=== PATIENT | female | born 1975 | race African-American/Black ===

== ENCOUNTER 2021-08-03 13:32 | Emergency (ER) | payer BC ==
--- OUTSIDE RECORDS SUMMARY | 2021-08-03 13:38 | XMS REPORT | Encounter Summary ---
Author Author [facility] Organization [facility] Address Unknown Phone Unavailable Care Team Providers Care Director Of National Sales Name Role Phone PCP Unavailable Reason for Visit * Reason Comments Poc Onsite Covid19 Testing Encounter Details Care Team Description Date Type Department Dorothea Damon, SHELIA [address] [place] [address] Contact with and (suspected) exposure to covid-19 (Primary Dx); Encounter for observation for suspected exposure to other biological agents ruled out 07/10/2021 Office Visit [place] - [address] Covid - 19 Testing Site [facility] [address] [place] [address] Social History Date Tobacco Use Types Packs/Day Years Used Never Assessed Sex Assigned at Date Recorded Not on file documented as of this encounter Last Filed Vital Signs Not on filedocumented in this encounter Functional Status Date of Assessment Functional Status Response Is the person deaf or does he/she have serious difficulty hearing? Is this person blind or does he/she hav e serious difficulty seeing even when wearing gla sses? Does this person have serious difficult y walking or climbing stairs? Does this person have difficulty dressi ng or bathing? Because of a physical, mental, or emoti onal condition, does this person have diffic ulty doing errands alone such as visiting a doctor 's office or shopping? Date of Assessment Cognitive Status Response Because of a physical, mental, or emoti onal condition, does this person have seriou s difficulty concentrating, remembering, or making decisions? documented as of this encounter Patient Instructions * Patient Instructions* Tala Bailey RN - 07/10/2021 2:40 PM CDT Patient was reached and results were delivered. Negative Test results You were seen for COVID-19 Testing and have tested negat yary. If you test negative for COVID-19, you probably were not infected at the ti me your specimen was collected. However, that does not mean you will not get sic k. It is possible that you were very early in your infection at the time of your specimen collection and that you could test positive later, or you could be exp osed later and then develop illness. Even with a negative test, it is important to stay home if sick and follow Department of Health recommendations. Managing your symptoms During this viral illness, rest and hydration are impor tant in your recovery. You can take anti-fever medication as directed per your [facility] provider and package instructions. Prevent the spread of illness Separate yourself from other people in your home As much as possible, you shoul d stay in a specific room and away from other people in your home. Also, you khanh uld use a separate bathroom, if available. Call ahead before visiting your doctor If you have a medical appointment, call t he healthcare provider and tell them that you have or may have COVID-19. This wi ll help the healthcare providers office take steps to keep other people from getting infected or exposed. Wear a facemask You should wear a facemask, if possible, when you are around ot er people (e.g., sharing a room or vehicle) and before you enter a healthcare pr oviders office. If you are not able to wear a facemask (for example, because it causes trouble breathing), then people who live with you should not be in the same room with you, or they should wear a facemask if they enter your room. Cover your coughs and sneezes Cover your mouth and nose with a tissue when you c ough or sneeze. Throw used tissues in a lined trash can; immediately clean your hands as described below. Clean your hands often Wash your hands often with soap and water for at least 20 seconds. If soap and water are not available, clean your hands with an alcohol- based hand expert medical writer that contains at least 60% alcohol, covering all surfaces o f your hands and rubbing them together until they feel dry. Soap and water is pr eferred if hands are visibly dirty. Avoid touching your eyes, nose, and mouth wi th unwashed hands. Avoid sharing personal household items You should not share dishes, drinking gla sses, cups, eating utensils, towels, or bedding with other people or pets in you r home. After using these items, they should be washed thoroughly with soap and water and dried before use by others. Clean all high-touch surfaces every day High touch surfaces include counte rs, tabletops, doorknobs, bathroom fixtures, toilets, phones, keyboards, tablets , and bedside tables. Also, clean any surfaces that may have blood, stool, or roma dy fluids on them. Use a household cleaning spray or wipe, according to the labe l instructions. Labels contain instructions for safe and effective use of the cl eaning product including precautions you should take when applying the product, such as wearing gloves and making sure you have good ventilation during use of t he product. [facility] COVID19 Fact Sheet You are being given this Fact Sheet because your sample(s) are being tested for the virus that causes Coronavirus Disease 2019 (COVID-19). This Fact Sheet contains information to help you understand the risks and benefi ts of using this test for the diagnosis of COVID-19. If you have questions or wo uld like to discuss the information provided after you read this Fact Sheet, ple ase talk to your healthcare provider. For the most up to date information on COVID-19 please visit the CDC Coronavirus Disease 2019 (COVID-19) webpage: https://www.cdc.gov/coronavirus/2019-ncov/index.html IMPORTANT INFORMATION REGARDING COVID19 TEST RESULTS: Please wait for next steps in the parking lot or designated wait area after you submitted your sample Ensure your phone is on as the provider will be calling you with next steps as you wait in the designated wait area. The [facility] provider will be able to perform other diagnostic tests (e. g., rapid flu or rapid strep) at the on-site [facility] for a symptomatic itz ent with a negative COVID-19 test result and can help answer questions about how to best manage symptoms and quarantine for a patient with a positive COVID-19 r esult. Know about COVID-19 COVID-19 is caused by the SARS-CoV-2 virus. COVID- 19 can cause mild to severe r espiratory illness, was first identified in [facility], and has now spread sade bally, including in the [place]. There is limited information available ab out the spectrum of illness associated with COVID-19 but it likely spreads to ot hers when a person shows signs or symptoms of being sick (e.g., cough, shortness of breath or difficult breathing, fever, chills, repeated shaking with chills, muscle pain, headache, sore throat, new loss of taste or smell, other less commo n symptoms have been reported, including gastrointestinal symptoms like nausea, vomiting, or diarrhea.) What are the known and potential risks and benefits of the test? Potential risks include: Possible discomfort or other complications that can happen during sample col lection. (I.e. bloody nose during specimen collection) It is possible that this test can give a positive result that is wrong (a fa lse positive result). It is possible for this test to give a negative result that is incorrect (fa lse negative). Potential benefits include: The results, along with other information, can help your healthcare provider make informed recommendations about your care. The results of this test may help limit the spread of COVID-19 to your famil y and others in your community. The results of this test may help limit the spread of COVID-19 to your famil y and others in your community. Potential benefits include: The results, along with other information, can help your healthcare provider make informed recommendations about your care. The results of this test may help limit the spread of COVID-19 to your famil y and others in your community. What does it mean if I have a positive test result? If you have a positive test result, it is very likely that you have COVID-19. Th erefore, it is also likely that you may be placed in isolation to avoid spreadin g the virus to others. There is a very small chance that this test can give a po sitive result that is wrong (a false positive result). Most cases can be cared for at home. Stay home and limit contact with others unt il: You have been fever-free for at least 24 hours without using medicine that reduc es fever AND your symptoms have improved AND at least 10 days have passed since your symptoms first appeared. Do not go to the hospital to seek care unless you have a medical emergency Do not go to work. Notify your employer of your positive test result Contact your primary care provider and inform them of your positive COVID19 testing result Continue to monitor your symptoms at home and seek medical attention if symp toms worsen as described on the opposite side of this document. If you test positive for COVID-19 but never had and never develop symptoms, you may discontinue isolation and other precautions 10 days after the date of your f irst positive test for COVID-19. What does it mean if I have a negative test result? A negative test result does not completely rule out being infected with COVID-19 . There is a chance that this test can give a false result that is wrong (a fals e negative result). If you test negative for COVID-19, this means the virus was not detected at the time your specimen was collected. It is still possible that you were very early in your infection at the time of your specimen collection and that you could thiago t positive later. Also, you could be exposed later and still develop the illness. For all these re asons, it is important to follow CDC guidance at (https://www.cdc.gov/coronaviru s/2019-ncov/etbnjzk-yocciyp-bzhz/prevention.html), including but not limited to frequent hand washing, social distancing, wearing a face covering, covering coug hs and sneezes, monitoring symptoms, and cleaning and disinfectant of frequently touched surfaces -- even after a negative test result. Is there a possibility that the test results could be invalid? In the instance that your specimen is invalid, you may have to submit a second s pecimen. If that also is an invalid result, you will likely need send-out lab te sting. Testing invalid today does not mean you do have COVID-19 or dont have COVID-19. There are some reasons as to why you may have tested invalid. For exam ple, a recent bloody nose, testing device errors, or not enough of a specimen sa mple could give an invalid result. How should I monitor my symptoms? Note the day any new symptoms begin Check your own temperature two times a day Keep a daily record of fever, cough and additional respiratory symptoms Seek further evaluation from a healthcare provider via telemedicine, or thru a scheduled in person visit if applicable and your symptoms get worse. Call ahead before visiting your healthcare provider and tell them you have b een tested for COVID-19. Even if you dont experience symptoms you might make others sick What should I do if symptoms get worse? Wash your hands often with soap and water for at least 20 seconds. Clean you r hands with an alcohol-based hand expert medical writer that contains at least 60% alcohol if soap and water are not available. Avoid close contact with people who are sick Avoid touching your eyes, nose and mouth with unwashed hands. Clean all high-touch surfaces every day. High touch surfaces include c ounters, tabletops, doorknobs, bathroom fixtures, toilets, phones, keyboards, ta blets, and beside tables. Cover coughs and sneezes If available, wear a face covering What should I do if symptoms get worse? Seek medical attention immediately if you develop any of the following [facility] warning signs for COVID-19 or other medical emergencies: Difficulty breathing Bluish lips or face Constant pain or pressure in your chest Constant dizziness or lightheadedness Acting confused Difficulty waking up Slurred speech (new or worsening) New seizure or seizures that wont stop This list is not all-inclusive. Please consult a healthcare provider for any oth er symptoms that are severe or concerning. What should I do to protect myself? Wash your hands often with soap and water for at least 20 seconds. Clean you r hands with an alcohol-based hand expert medical writer that contains at least 60% alcohol if soap and water are not available. Avoid close contact with people who are sick Avoid touching your eyes, nose and mouth with unwashed hands. Clean all high-touch surfaces every day. High touch surfaces include c ounters, tabletops, doorknobs, bathroom fixtures, toilets, phones, keyboards, ta blets, and beside tables. Cover coughs and sneezes If available, wear a face covering When will I receive my test results? [employer] allows you to view your test results, your medical records and more. You will receive a [employer]Flow activation email at the conclusion of your COVID19 visit. Upon receipt, you will need to create a user name and password by inputting [facility] patient demographics including date of and a response to a security qu estion. If you have any questions and/or concerns regarding the [employer] process, you may email [email or web address] Our Notice of Privacy Practices can be found here: [email or web address] If you have any questions, pl ease contact us at . Where can I go for updates and more information? The most up-to-date information on is available at the [facility] General webpage: https://www.cdc.gov/COVI D19 In addition, please also contact your healthcare provider with any questions/con cerns. [facility] Information Updated: February 22, 2020 documented in this encounter Progress Notes * Tala Bailey RN - 07/10/2021 2:40 PM CDT [facility] Department of Health notified of results per regulations documented in this encounter Plan of Treatment Not on filedocumented as of this encounter Goals Not on filedocumented as of this encounter Procedures Comments Procedure Name Priority Date/Time Associated Diag nosis LUMIRADX SARS-COV-2 RAPID Routine 07/10/2021 Cont act with and RESULT ANTIGEN TEST 2:41 PM CDT (suspected) expos ure to covid-19 documented in this encounter Results * LumiraDX SARS-COV-2 Rapid Result Antigen Test (07/10/2021 2:41 PM CDT) LumiraDX Negative Negative, Invalid POCT 585 SARS-COV-2 Rapid Result Antigen Test INTERNAL Yes--Test working [address]CT [address] CONTROLS VALID appropriately Expiration Date 112,521 [address] Lot Number [id number] POCT [address] Test Brand Lumiradx Sars-Cov-2 AG Test POCT 5 85 Name_Covid-19 Specimen Other Performing Organization Address City/State/ZIP Code P willian Number [id number] [place], [place] [address] documented in this encounter Visit Diagnoses Diagnosis Contact with and (suspected) exposure t o covid-19 - Primary Encounter for observation for suspected exposure to other biological agents ruled out documented in this encounter Administered Medications Not on filedocumented in this encounter Additional Health Concerns Not on filedocumented as of this encounter
--- OUTSIDE RECORDS SUMMARY | 2021-08-03 13:38 | XMS REPORT | Clinical Summary ---
Author Author [facility] Organization [facility] Address Unknown Phone Unavailable Care Team Providers Care Bulk Pallet Builder Name Role Phone PP Unavailable Allergies Not on File Medications Not on file Active Problems Not on file Encounters Care Team Description Date Type Specialty Dorothea Damon NP Contact with and (suspected) exposure to covid-19 (Primary Dx); Encounter for observation for suspected exposure to other biological agents ruled out 07/10/2021 Office Visit Progress Notes - Tala Bailey RN - 07/10/2021 2:40 PM CDT [facility] Department of Health notified of results per regulations from Last 3 Months Social History Date Tobacco Use Types Packs/Day Years Used Never Assessed Sex Assigned at Date Recorded Not on file Plan of Treatment Health Maintenance Due Date Last Done Comments MAMMOGRAM 1974 Cervical Cancer: 1995 Screening Colonoscopy 2014 Procedures Comments Procedure Name Priority Date/Time Associated Diag nosis LUMIRADX SARS-COV-2 RAPID Routine 07/10/2021 Cont act with and RESULT ANTIGEN TEST 2:41 PM CDT (suspected) expos ure to covid-19 from Last 3 Months Results * LumiraDX SARS-COV-2 Rapid Result Antigen Test (07/10/2021 2:41 PM CDT) LumiraDX Negative Negative, Invalid POCT [address] SARS-COV-2 Rapid Result Antigen Test INTERNAL Yes--Test working POCT [address] CONTROLS VALID appropriately Expiration Date 112,521 [address] Lot Number [id number] POCT [address] Test Brand Lumiradx Sars-Cov-2 AG Test MC POCT 5 85 Name_Covid-19 Specimen Other Performing Organization Address City/State/ZIP Code P willian Number POCT [phone] [place], [place] [address] from Last 3 Months
--- NOTE | 2021-08-03 13:50 | ED General ---
General Stated Complaint: NAUSEA/DIZZINESS/ANXIOUS Source of Information: Patient Exam Limitations: No Limitations History of Present Illness Date Seen by Provider: Aug 03, 2021 Time Seen by Provider: 13:49 Initial Comments To ER with nausea dizziness and anxiety since Thursday of this week. No fever no cough no shortness of breath no chills. She has not fully vaccinated. She just arrived here from [place] to move her daughter home. Her daughter lives here in [place]. She takes no medications. She did just finished her menstrual cycle. Timing/Duration: 3-4 Days Severity: Moderate Associated Systoms: Nausea/Vomiting Allergies and Home Medications Allergies Coded Allergies: No Known Drug Allergies (Unverified , 08/03/21) Patient Home Medication List Home Medication List Reviewed: Yes Alprazolam (Xanax) 0.5 Mg Tablet, 0.5 MG PO BID PRN for ANXIETY Prescribed by: SIMONA ARCOS on 08/03/21 1500 Ondansetron (Ondansetron Odt) 8 Mg Tab.rapdis, 8 MG PO Q6H PRN for NAUSEA/VOMITING Prescribed by: SIMONA ARCOS on 08/03/21 1500 Review of Systems Review of Systems Constitutional: see HPI; No chills, No fever EENTM: see HPI Respiratory: no symptoms reported Cardiovascular: no symptoms reported Genitourinary: no symptoms reported Musculoskeletal: no symptoms reported Skin: no symptoms reported Psychiatric/Neurological: No Symptoms Reported Hematologic/Lymphatic: No Symptoms Reported Immunological/Allergic: no symptoms reported Physical Exam Vital Signs Vital Signs - First Documented 08/03/21 13:38 Temp 36.2 Pulse 80 Resp 16 B/P (MAP) 145/117 (126) Pulse Ox 98 O2 Delivery Room Air Capillary Refill : Height, Weight, BMI Height: '" Weight: lbs. oz. kg; BMI Method: General Appearance: No Apparent Distress, WD/WN Eyes: Bilateral Eye Normal Inspection, Bilateral Eye PERRL, Bilateral Eye EOMI Neck: Full Range of Motion, Normal Inspection Respiratory: No Accessory Muscle Use, No Respiratory Distress Cardiovascular: Regular Rate, Rhythm, Normal Peripheral Pulses Gastrointestinal: Normal Bowel Sounds, Non Tender, Soft Extremity: Normal Capillary Refill, Normal Inspection Neurologic/Psychiatric: Alert, Oriented x3 Skin: Normal Color, Warm/Dry Progress/Results/Core Measures Suspected Sepsis SIRS Temperature: Pulse: Respiratory Rate: Laboratory Tests 08/03/21 13:47: White Blood Count 10.1 Blood Pressure / Mean: Laboratory Tests 08/03/21 13:47: Creatinine 0.94, Platelet Count 385, Total Bilirubin 0.3 Results/Orders Lab Results Laboratory Tests Test 08/03/21 13:47 08/03/21 14:06 Range/Units White Blood Count 10.1 4.3-11.0 10^3/uL Red Blood Count 4.70 3.80-5.11 10^6/uL Hemoglobin 11.6 11.5-16.0 g/dL Hematocrit 37 35-52 % Mean Corpuscular Volume 79 L 80-99 fL Mean Corpuscular Hemoglobin 25 25-34 pg Mean Corpuscular Hemoglobin Concent 31 L 32-36 g/dL Red Cell Distribution Width 16.3 H 10.0-14.5 % Platelet Count 385 130-400 10^3/uL Mean Platelet Volume 10.8 9.0-12.2 fL Immature Granulocyte % (Auto) 0 % Neutrophils (%) (Auto) 64 42-75 % Lymphocytes (%) (Auto) 26 12-44 % Monocytes (%) (Auto) 5 0-12 % Eosinophils (%) (Auto) 4 0-10 % Basophils (%) (Auto) 1 0-10 % Neutrophils # (Auto) 6.5 1.8-7.8 10^3/uL Lymphocytes # (Auto) 2.6 1.0-4.0 10^3/uL Monocytes # (Auto) 0.5 0.0-1.0 10^3/uL Eosinophils # (Auto) 0.4 H 0.0-0.3 10^3/uL Basophils # (Auto) 0.1 0.0-0.1 10^3/uL Immature Granulocyte # (Auto) 0.0 0.0-0.1 10^3/uL Sodium Level 137 135-145 MMOL/L Potassium Level 3.6 3.6-5.0 MMOL/L Chloride Level 105 98-107 MMOL/L Carbon Dioxide Level 20 L 21-32 MMOL/L Anion Gap 12 5-14 MMOL/L Blood Urea Nitrogen 9 7-18 MG/DL Creatinine 0.94 0.60-1.30 MG/DL Estimat Glomerular Filtration Rate 77 BUN/Creatinine Ratio 10 Glucose Level 154 H 70-105 MG/DL Calcium Level 9.3 8.5-10.1 MG/DL Corrected Calcium 9.5 8.5-10.1 MG/DL Total Bilirubin 0.3 0.1-1.0 MG/DL Aspartate Amino Transf (AST/SGOT) 26 5-34 U/L Alanine Aminotransferase (ALT/SGPT) 26 0-55 U/L Alkaline Phosphatase 78 40-136 U/L Total Protein 7.5 6.4-8.2 GM/DL Albumin 3.8 3.2-4.5 GM/DL Thyroid Stimulating Hormone (TSH) 1.07 0.35-4.94 UIU/ML Free Thyroxine 1.06 0.70-1.48 NG/DL Urine Color YELLOW Urine Clarity CLEAR Urine pH 5.5 5-9 Urine Specific [place] >=1.030 1.016-1.022 Urine Protein NEGATIVE NEGATIVE Urine Glucose (UA) NEGATIVE NEGATIVE Urine Ketones NEGATIVE NEGATIVE Urine Nitrite NEGATIVE NEGATIVE Urine Bilirubin 1+ H NEGATIVE Urine Urobilinogen 0.2 < = 1.0 MG/DL Urine Leukocyte Esterase NEGATIVE NEGATIVE Urine RBC (Auto) 2+ H NEGATIVE Urine RBC 0-2 /HPF Urine WBC RARE /HPF Urine Squamous Epithelial Cells 2-5 /HPF Urine Crystals PRESENT H /LPF Urine Amorphous Sediment FEW CORY URATES H /LPF Urine Bacteria FEW H /HPF Urine Casts NONE /LPF Urine Mucus NEGATIVE /LPF Urine Culture Indicated YES Micro Results Microbiology 08/03/21 Urine Culture - Final, Complete Growth Consistent My Orders Orders - SIMONA ARCOS APRN Lorazepam Injection (Ativan Injection) (08/03/21 14:00) Ondansetron Injection (Zofran Injectio (08/03/21 14:00) Lactated Ringers (Lr 1000 Ml Iv Solution (08/03/21 14:00) Cbc With Automated Diff (08/03/21 13:46) Comprehensive Metabolic Panel (08/03/21 13:46) Ua Culture If Indicated (08/03/21 13:46) Thyroid Stimulating Hormone (08/03/21 13:46) Free T4 (Free Thyroxine) (08/03/21 13:46) Ed Iv/Invasive Line Start (08/03/21 13:46) Ekg Tracing (08/03/21 13:46) Urine Culture (08/03/21 14:06) Promethazine Injection (Phenergan Injec (08/03/21 15:15) Medications Given in ED Vital Signs/I&O 08/03/21 08/03/21 13:38 15:44 Temp 36.2 36.2 Pulse 80 82 Resp 16 16 B/P (MAP) 145/117 (126) 141/84 Pulse Ox 98 99 O2 Delivery Room Air Room Air Capillary Refill : Departure Impression Primary Impression: Anxiety Additional Impression: Nausea & vomiting Disposition: 01 HOME, SELF-CARE Condition: Stable Departure-Patient Inst. Decision time for Depature: 14:57 Referrals: NO,LOCAL PHYSICIAN (PCP/Family) Primary Care Physician Patient Instructions: No Instuctions Given Add. Discharge Instructions: 1. Use the nausea and anxiety medication as needed. [facility] Return to ER for any worsening. Follow-up with your doctor next week for recheck. Scripts Ondansetron (Ondansetron Odt) 8 Mg Tab.rapdis 8 MG PO Q6H PRN for NAUSEA/VOMITING, #10 TAB Prov: SIMONA ARCOS RAIMANN MACHINE OPERATOR 08/03/21 Alprazolam (Xanax) 0.5 Mg Tablet 0.5 MG PO BID PRN for ANXIETY, #5 TAB Prov: SIMONA ARCOS RAIMANN MACHINE OPERATOR 08/03/21 SIMONA ARCOS RAIMANN MACHINE OPERATOR Aug 03, 2021 13:50
[2021-08-03 13:57] LABS: BASOPHILS # (AUTO) 0.1 10^3/uL (0.0-0.1); BASOPHILS % (AUTO) 1 % (0-10); EOSINOPHILS # (AUTO) 0.4 10^3/uL (0.0-0.3); EOSINOPHILS % (AUTO) 4 % (0-10); HEMATOCRIT 37 % (35-52); HEMOGLOBIN 11.6 g/dL (11.5-16.0); LYMPHOCYTES # (AUTO) 2.6 10^3/uL (1.0-4.0); LYMPHOCYTES % (AUTO) 26 % (12-44); MEAN CORPUSCULAR HEMOGLOBIN 25 pg (25-34); MEAN CORPUSCULAR HGB CONC 31 g/dL (32-36); MEAN CORPUSCULAR VOLUME 79 fL (80-99); MEAN PLATELET VOLUME 10.8 fL (9.0-12.2); MONOCYTES # (AUTO) 0.5 10^3/uL (0.0-1.0); MONOCYTES % (AUTO) 5 % (0-12); NEUTROPHILS # (AUTO) 6.5 10^3/uL (1.8-7.8); NEUTROPHILS % (AUTO) 64 % (42-75); PLATELET COUNT 385 10^3/uL (130-400); WHITE BLOOD COUNT 10.1 10^3/uL (4.3-11.0)
[2021-08-03] MEDS ORDERED: LACTATED RINGERS 1,000 ML IV SCH (14:00)
[2021-08-03] MEDS ORDERED: LORazepam INJ 2 MG/ML (ATIVAN) VIAL IVP PRN (14:00)
[2021-08-03] MEDS ORDERED: ONDANSETRON 4 MG/2 ML (SDV) Z0FRAN IVP ONE (14:00)
[2021-08-03 14:07] LABS: ALBUMIN 3.8 GM/DL (3.2-4.5)
[2021-08-03 14:08] LABS: POTASSIUM 3.6 MMOL/L (3.6-5.0)
[2021-08-03 14:09] LABS: CALCIUM 9.3 MG/DL (8.5-10.1)
[2021-08-03 14:10] LABS: TOTAL PROTEIN 7.5 GM/DL (6.4-8.2)
[2021-08-03 14:12] LABS: BILIRUBIN,TOTAL 0.3 MG/DL (0.1-1.0)
[2021-08-03 14:14] LABS: CLARITY,URINE CLEAR; COLOR,URINE YELLOW; GLUCOSE, URINE (UA) NEGATIVE (NEGATIVE); KETONES,URINE NEGATIVE (NEGATIVE); LEUKOCYTE ESTERASE ,URINE NEGATIVE (NEGATIVE); NITRITE,URINE NEGATIVE (NEGATIVE); PH,URINE 5.5 (5-9); PROTEIN,URINE NEGATIVE (NEGATIVE)
[2021-08-03 14:14] LABS: CREATININE SERUM 0.94 MG/DL (0.60-1.30)
[2021-08-03 14:17] LABS: BACTERIA,URINE FEW /HPF; RBC,URINE 0-2 /HPF; WBC,URINE RARE /HPF
[2021-08-03 14:18] LABS: AMORPHOUS SEDIMENT,UR FEW AMOR URATES /LPF
[2021-08-03 14:19] LABS: BILIRUBIN,URINE 1+ (NEGATIVE)
[2021-08-03 14:38] LABS: FREE T4 (FREE THYROXINE) 1.06 NG/DL (0.70-1.48)
[2021-08-03] MEDS ORDERED: ALPR0.5T PO (15:00)
[2021-08-03] MEDS ORDERED: ONDA8TAB13 PO (15:00)
[2021-08-03] MEDS ORDERED: PROMETHAZINE INJ 25 MG/ML (PHENERGAN) AMP IVP ONE (15:15)
[2021-08-03 15:44] VITALS: BP 141/84
== END 2021-08-03 15:44 | disposition home or self-care (01) ==
LOC: ER 13:35
DX: R11.2 Nausea with vomiting, unspecified (principal); F41.9 Anxiety disorder, unspecified
CPT/HCPCS: 36415; 80053; 81000; 84439; 84443; 85025; 87088; 93005